=== PATIENT | female | born 1980 | race American Indian/Alaskan Native ===

== ENCOUNTER 2017-07-26 16:06 | Emergency (ER) | payer SELFPAY ==
[2017-07-26] MEDS ORDERED: TYLENOL ONE (16:13)
[2017-07-26 16:14] VITALS: BP 134/87
[2017-07-26] MEDS ORDERED: TYLENOL PO ONE (16:14)
--- NOTE | 2017-07-26 17:44 | Emergency Department Report ---
ED Dizziness HPI - General Chief Complaint: Dizziness Stated Complaint: NAUSEA/DIZZINESS Time Seen by Provider: 07/26/17 17:33 Source: patient Mode of arrival: Ambulatory Limitations: No Limitations - History of Present Illness Initial Comments: Patient is a 36-year-old female who is presenting with dizziness. Patient states she's had several days where she feels as though she has a spinning sensation as worse when she turns her head to the left. Patient also is complaining of mild headache and sinus drainage and postnasal drip. His had a slight cough as well but denies any chest pain shortness of breath. -: Gradual, days(s) (4) Severity: moderate - Related Data Previous Rx's Medication Instructions Recorded Last Taken Type Amoxicillin/Potassium Clav 1 each PO BID #14 tablet 07/26/17 Unknown Rx [Augmentin 875-125 Tablet] Meclizine [Antivert] 25 mg PO TID PRN #12 tablet 07/26/17 Unknown Rx predniSONE [Deltasone] 20 mg PO QDAY #5 tab 07/26/17 Unknown Rx traMADol [Ultram] 50 mg PO Q6HR PRN #10 tablet 07/26/17 Unknown Rx Allergies Allergy/AdvReac Type Severity Reaction Status Date / Time iodine Allergy Swelling Verified 07/26/17 16:09 ED Review of Systems ROS: Stated complaint: NAUSEA/DIZZINESS Other details as noted in HPI Comment: All other systems reviewed and negative ED Past Medical Hx - Past Medical History Previous Medical History?: Yes Additional medical history: protien S deficiency - Surgical History Past Surgical History?: Yes Additional Surgical History: tubal ligation. cleft lip repair - Social History Smoking Status: Never Smoker Substance Use Type: None - Medications Home Medications: Home Medications Medication Instructions Recorded Confirmed Last Taken Type Amoxicillin/Potassium Clav 1 each PO BID #14 tablet 07/26/17 Unknown Rx [Augmentin 875-125 Tablet] Meclizine [Antivert] 25 mg PO TID PRN #12 tablet 07/26/17 Unknown Rx predniSONE [Deltasone] 20 mg PO QDAY #5 tab 07/26/17 Unknown Rx traMADol [Ultram] 50 mg PO Q6HR PRN #10 tablet 07/26/17 Unknown Rx ED Physical Exam - General Limitations: No Limitations General appearance: alert, in no apparent distress - Head Head exam: Present: atraumatic, normocephalic - Eye Eye exam: Present: normal appearance - ENT ENT exam: Present: mucous membranes moist, other (patient has some right greater than left maxillary sinus tenderness) - Neck Neck exam: Present: normal inspection - Respiratory Respiratory exam: Present: normal lung sounds bilaterally. Absent: respiratory distress, wheezes, rales, rhonchi - Cardiovascular Cardiovascular Exam: Present: regular rate, normal rhythm. Absent: systolic murmur, diastolic murmur, rubs, gallop - GI/Abdominal GI/Abdominal exam: Present: soft, normal bowel sounds. Absent: distended, tenderness, guarding, rebound - Extremities Exam Extremities exam: Present: normal inspection - Back Exam Back exam: Present: normal inspection - Neurological Exam Neurological exam: Present: alert, oriented X3 - Psychiatric Psychiatric exam: Present: normal affect, normal mood - Skin Skin exam: Present: warm, dry, intact, normal color. Absent: rash ED Course Vital Signs 07/26/17 16:09 Temperature 100.2 F H Pulse Rate 105 H Respiratory 18 Rate Blood Pressure 134/87 O2 Sat by Pulse 99 Oximetry ED Medical Decision Making - Medical Decision Making Patient will be treated for acute sinusitis as well as vertigo be discharged home. Critical care attestation.: If time is entered above; I have spent that time in minutes in the direct care of this critically ill patient, excluding procedure time. ED Disposition Clinical Impression: Vertigo Acute sinusitis Qualifiers: Sinusitis location: other Recurrence: non-recurrent Qualified Code(s): J01.80 - Other acute sinusitis Disposition: - TO HOME OR SELFCARE Is pt being admited?: No Does the pt Need Aspirin: No Condition: Stable Additional Instructions: Please also try Flonase [id number] spray Referrals: ROYA VORA MD [Staff Physician] - 3-5 Days
== END 2017-07-26 17:44 | disposition home or self-care (01) ==
LOC: ED 16:06
DX: J01.80 Other acute sinusitis (principal); R42 Dizziness and giddiness
CPT/HCPCS: 99282

== ENCOUNTER 2018-07-14 08:09 | Emergency (ER) | payer MEDICAID ==
[2018-07-14 08:28] VITALS: BP 128/81
[2018-07-14 09:15] LABS: Basophils % (Auto) 0.4 % (0.0-1.8); Eosinophils # (Auto) 0.1 K/mm3 (0.0-0.4); Eosinophils % (Auto) 1.3 % (0.0-4.3); Hematocrit 39.8 % (30.3-42.9); Hemoglobin 13.3 gm/dl (10.1-14.3); Lymphocytes # (Auto) 1.8 K/mm3 (1.2-5.4); Lymphocytes % (Auto) 29.4 % (13.4-35.0); Mean Corpuscular HGB Conc 34 % (30-34); Mean Corpuscular Volume 92 fl (79-97); Monocytes # (Auto) 0.5 K/mm3 (0.0-0.8); Monocytes % (Auto) 7.9 % (0.0-7.3); Platelet Count 226 K/mm3 (140-440); Red Blood Count 4.35 M/mm3 (3.65-5.03)
--- NOTE | 2018-07-14 09:28 | Emergency Department Report ---
ED Chest Pain HPI - General Chief Complaint: Chest Pain Stated Complaint: PAIN ON R SIDE OF CHEST Time Seen by Provider: 07/14/18 09:09 Source: patient Mode of arrival: Ambulatory Limitations: No Limitations - History of Present Illness Initial Comments: 37-year-old female is a complaining of right-sided chest pain with some swelling she noted on Sunday. She states that she went walking the other day and had a mild anxiety attack but other than that she had no pain. Patient states the pain is a positive right side of her chest. Other Symptoms: denies: cough, fever, acid taste in mouth - Related Data Previous Rx's Medication Instructions Recorded Last Taken Type Amoxicillin/Potassium Clav 1 each PO BID #14 tablet 07/26/17 Unknown Rx [Augmentin 875-125 Tablet] Meclizine [Antivert] 25 mg PO TID PRN #12 tablet 07/26/17 Unknown Rx predniSONE [Deltasone] 20 mg PO QDAY #5 tab 07/26/17 Unknown Rx traMADol [Ultram] 50 mg PO Q6HR PRN #10 tablet 07/26/17 Unknown Rx Naproxen [Naprosyn] 500 mg PO BID #30 tablet 07/14/18 Unknown Rx Allergies Allergy/AdvReac Type Severity Reaction Status Date / Time amoxicillin Allergy Rash Verified 07/14/18 08:25 iodine Allergy Swelling Verified 07/26/17 16:09 Heart Score - HEART Score History: Slightly suspicious EKG: Non-specific Age: < 45 Risk factors: No known risk factors Troponin: < normal limit HEART Score: 1 ED Review of Systems ROS: Stated complaint: PAIN ON R SIDE OF CHEST Other details as noted in HPI Comment: All other systems reviewed and negative ED Past Medical Hx - Past Medical History Previous Medical History?: Yes Additional medical history: protien S deficiency - Surgical History Past Surgical History?: Yes Additional Surgical History: tubal ligation. cleft lip repair - Social History Smoking Status: Never Smoker Substance Use Type: None - Medications Home Medications: Home Medications Medication Instructions Recorded Confirmed Last Taken Type Amoxicillin/Potassium Clav 1 each PO BID #14 tablet 07/26/17 Unknown Rx [Augmentin 875-125 Tablet] Meclizine [Antivert] 25 mg PO TID PRN #12 tablet 07/26/17 Unknown Rx predniSONE [Deltasone] 20 mg PO QDAY #5 tab 07/26/17 Unknown Rx traMADol [Ultram] 50 mg PO Q6HR PRN #10 tablet 07/26/17 Unknown Rx Naproxen [Naprosyn] 500 mg PO BID #30 tablet 07/14/18 Unknown Rx ED Physical Exam - General Limitations: No Limitations General appearance: alert, in no apparent distress - Head Head exam: Present: atraumatic, normocephalic - Eye Eye exam: Present: normal appearance - ENT ENT exam: Present: mucous membranes moist - Neck Neck exam: Present: normal inspection - Respiratory Respiratory exam: Present: normal lung sounds bilaterally. Absent: respiratory distress - Cardiovascular Cardiovascular Exam: Present: regular rate, normal rhythm. Absent: systolic murmur, diastolic murmur, rubs, gallop - GI/Abdominal GI/Abdominal exam: Present: soft, normal bowel sounds - Extremities Exam Extremities exam: Present: normal inspection - Back Exam Back exam: Present: normal inspection - Neurological Exam Neurological exam: Present: alert, oriented X3 - Psychiatric Psychiatric exam: Present: normal affect, normal mood - Skin Skin exam: Present: warm, dry, intact, normal color. Absent: rash ED Course Vital Signs 07/14/18 07/14/18 08:26 10:41 Temperature 98.7 F Pulse Rate 121 H Respiratory 18 16 Rate Blood Pressure 128/81 O2 Sat by Pulse 99 Oximetry ARLEY score - Arely Score Age > 65: (0) No Aspirin use within the Past 7 Days: (0) No 3 or more CAD Risk Factors: (0) No 2 or more Angina events in past 24 hrs: (0) No Known CAD with more than 50% Stenosis: (0) No Elevated Cardiac Markers: (0) No ST Deviation Greater than 0.5mm: (0) No ARLEY Score: 0 ED Medical Decision Making - Lab Data Result diagrams: 07/14/18 08:52 07/14/18 08:52 - Radiology Data Radiology results: report reviewed, image reviewed FINDINGS: Heart: Normal. Mediastinum/Vessels: Normal. Lungs/Pleural space: Normal. Bony thorax: No acute osseous abnormality. IMPRESSION: No acute cardiopulmonary disease. This document is electronically signed by Cordelia Jaimes MD., Jul 14 2018 10:11:04 AM ET Transcribed By: BRIANA Dictated By: CORDELIA JAIMES MD Electronically Authenticated By: CRODELIA JAIMES MD Signed Date/Time: 07/14/18 1013 - Medical Decision Making 37-year-old female who presented Chest pain Labs are within normal limits. Troponin negative chest x-ray negative Patient's d-dimer was mildly elevated but still below the predictive value for PE or DVT. Discussed this findings with the patient. Discussed follow-up with primary care physician. Patient is states at this time and instructions. Vital signs are normalized she is in no acute distress. Critical care attestation.: If time is entered above; I have spent that time in minutes in the direct care of this critically ill patient, excluding procedure time. ED Disposition Clinical Impression: Atypical chest pain Disposition: DC-01 TO HOME OR SELFCARE Is pt being admited?: No Does the pt Need Aspirin: No Condition: Stable Instructions: Chest Pain (ED), Costochondritis (ED) Additional Instructions: Make sure to follow up with the primary care physician as discussed. Take all your medications as you've been prescribed. If you have any worsening symptoms or develop new symptoms please return to ED immediately. Prescriptions: Naproxen [Naprosyn] 500 mg PO BID #30 tablet Referrals: JORGE NEFF MD [Primary Care Provider] - 3-5 Days Forms: Accompanied Note, Work/School Release Form(ED) Time of Disposition: 10:57
[2018-07-14 09:42] LABS: Alanine Aminotransferase 19 units/L (7-56); Albumin 4.2 g/dL (3.9-5); BUN/Creatinine Ratio 13; Blood Urea Nitrogen 12 mg/dL (7-17); Calcium 9.1 mg/dL (8.4-10.2); Hemolysis Index 4
--- NOTE | 2018-07-14 10:13 | XRay Report ---
PROCEDURE: XR CHEST ROUTINE 2V TECHNIQUE: PA and lateral chest radiographs were obtained. HISTORY: pain COMPARISONS: None. FINDINGS: Heart: Normal. Mediastinum/Vessels: Normal. Lungs/Pleural space: Normal. Bony thorax: No acute osseous abnormality. IMPRESSION: No acute cardiopulmonary disease. This document is electronically signed by Cordelia Jaimes MD., Jul 14 2018 10:11:04 AM ET
[2018-07-14] MEDS ORDERED: IBUPROFEN PO ONE (10:33)
== END 2018-07-14 11:17 | disposition home or self-care (01) ==
LOC: ED 08:09
DX: R07.89 Other chest pain (principal); Z88.1 Allergy status to other antibiotic agents; Z91.041 Radiographic dye allergy status; Z98.51 Tubal ligation status
CPT/HCPCS: 36415; 71046; 80048; 80053; 84484; 84703; 85025; 85379; 93005; 93010; 99284